=== PATIENT | male | born 1940 | race Caucasian/White ===

== ENCOUNTER 2017-04-07 07:23 | Outpatient (RCR) | payer MEDICARE, OTHER, SELFPAY ==
[2017-04-07 08:51] LABS: AST(SGOT) 45 U/L (15-37); Alanine Aminotransfer ALT/SGPT 46 U/L (12-78); Albumin, Serum 3.1 g/dL (3.4-5.0); Alkaline Phosphatase 113 U/L (45-117); Bilirubin, Direct 0.31 mg/dL (0.00-0.30); Globulin 4.5 g/dL (2.2-4.2); Protein, Total 7.6 g/dL (6.4-8.2)
== END 2017-04-07 07:45 | disposition home or self-care (01) ==
LOC: LAB 07:23
PROVIDERS: Family Provider Student in an Organized Health Care Education/Training Program; PCP Student in an Organized Health Care Education/Training Program
DX: K50.00 Crohn's disease of small intestine without complications (principal); E03.9 Hypothyroidism, unspecified; M25.50 Pain in unspecified joint
CPT/HCPCS: 36415; 80076

== ENCOUNTER 2024-07-19 16:00 | Emergency (ER) | payer MEDICARE, OTHER, SELFPAY ==
[2024-07-19 16:01] VITALS: BP 141/81; PULSE 82; RESP 19; TEMP 36.7; O2SAT 98; BMI 30.2
--- NOTE | 2024-07-19 17:37 | EX.ED.DYSGE1 ---
HPI History of Present Illness Chief Complaint: Complaint Narrative Narrative: Chief complaint and HPI: Urolithiasis with right flank pain. History taken by patient as well as medical record. 83-year-old gentleman presents for evaluation of urolithiasis with right flank pain. Patient is visiting from [place]. States that 4 days ago he started having right flank pain and dark urine with hematuria. Has a history of intermittent hematuria for the past several months. Has not followed up for this. Saw PCP today in which he had UA performed that was negative for UTI but positive for blood. Creatinine of 1.49. Had a CT abdomen pelvis with IV contrast outpatient. Showed right hydronephrosis with a 1.5 x 1 cm stone in the right mid ureter. Urothelial thickening in the left renal pelvis and proximal left ureter which can be seen with left pyelitis/pyelonephritis. Staghorn stone in the left renal pelvis. Mild thickening of the distal ileum versus non-distention. The possibility of an enteritis is raised. Finding consistent with cirrhosis and portal hypertension. He was sent to the emergency department due to the findings. Patient denies any fever, chills, shortness of breath, chest pain, nausea, vomiting, diarrhea, constipation, dysuria. States he received Toradol prior to arrival here in the emergency department and that his pain is controlled. Review of systems: See HPI Medications: As listed on the chart Allergies: As listed on the chart PFSH: Per chart Vital signs: As listed on the chart. Reviewed. Physical exam: Gen: A&O x3, NAD Head: Normocephalic, atraumatic Eyes: No sclera icterus, conjunctiva clear ENT: Moist mucous membranes Neck: Trachea midline, No JVD CV: RRR, no murmurs, no peripheral edema Resp: Lungs CTA BL, no w/r/c GI: Abd soft, non-distended, non-tender, no r/r/g : No CVA tenderness Musc: Full ROM, no deformity Skin: Warm, dry Neuro: Alert, oriented, grossly intact, sensation intact Psych: Cooperative, appropriate mood and affect [facility] Medical History (Updated 07/19/24 @ 17:05 by Lizzeth Mills) Crohn's disease Home Medications ?Medication ?Instructions ?Recorded ?Last Taken ?Type cyanocobalamin (vitamin B-12) 1,000 mcg subcut .COMPLEX 07/19/24 Unknown History 1,000 mcg/mL injection solution levothyroxine 100 mcg tablet 100 mcg PO DAILY 07/19/24 Unknown History tramadol 50 mg tablet 50 mg PO Q6H PRN PRN pain 07/19/24 Unknown History ustekinumab 45 mg/0.5 mL 90 mg subcut .COMPLEX 07/19/24 Unknown History subcutaneous solution (Stelara) Allergy/AdvReac Type Severity Reaction Status Date / Time No Known Allergies Allergy Verified 07/19/24 16:01 Social History Smoking Status: Never smoker EXAM Physical Exam Const Vital Signs: 07/19/24 16:01 07/19/24 18:01 07/19/24 20:00 Temperature 98.1 F Temperature Source Temporal Pulse Rate 82 89 Respiratory Rate 19 H 18 16 Blood Pressure 141/81 H 158/98 H Blood Pressure Mean 101 118 Pulse Ox 98 98 Oxygen Delivery Method Room Air Room Air Room Air 07/19/24 22:00 07/19/24 22:00 Temperature 98.2 F Temperature Source Pulse Rate 71 74 Respiratory Rate 16 16 Blood Pressure 166/83 H 166/83 H Blood Pressure Mean 110 110 Pulse Ox 98 97 Oxygen Delivery Method Room Air MDM MDM MDM Narrative Medical decision making narrative: 83-year-old gentleman presents for evaluation of urolithiasis with right flank pain. Patient had outpatient imaging that showed right hydronephrosis with a 1.5 x 1 cm stone in the mid ureter. Received Toradol prior to arrival and states his pain is controlled. I did review the laboratory and imaging from PCP. Patient is in no acute distress on arrival. His vitals are stable. He is denying any infectious type symptoms. Differential diagnosis includes but is not limited to urolithiasis, obstructive JANELLE, electrolyte abnormality. Suspect less likely pyelonephritis as well as UTI given that UA was negative. The urologist that we have on-call is Dr. Olvera who only manages female patients. Patient will need to be transferred to another facility. States his doctor is with the [facility] so recommended [facility] transfer. Patient and became very upset with this news. There was multiple discussions in the room about further management. They originally were going to leave AGAINST MEDICAL ADVICE but then agreed to NS bolus, laboratory workup, and transfer. After laboratory workup was ordered, patient changed his mind and wanted to leave AGAINST MEDICAL ADVICE again. He then agreed to stay. Patient declining pain medicine. CBC without leukocytosis or anemia. Patient does have thrombocytosis of 138. I do not have a previous CBC to compare to. BMP shows worsening renal insufficiency with a BUN of 22 and a creatinine of 1.68. Lactic acid unremarkable. UA again is positive for blood but negative for UTI. I have low suspicion for pyelonephritis or infectious etiology. Patient was updated of all the results and the plan for transfer. There was a delay in transfer acceptance as [facility] was originally contacted and I spoke with the urologist Dr. Jimenez. [facility] was then contacted which they did not have anything available and recommended [facility] [place]. I spoke with the urologist Dr. Goodman who accepted transfer. She agrees that patient will likely need stent placement. Given that patient's vitals are stable, his pain controlled, and negative for infection she is okay with private vehicle transfer. This was discussed because patient refused to be transferred via ambulance. I do think this is reasonable. Patient's will be monitored in our emergency department on maintenance fluids until that is obtained. Once bed is obtained patient will be transferred via private vehicle to [facility]. He confirmed understanding of the plan. Impression: 1. Right flank pain secondary to right hydronephrosis and urolithiasis 2. JANELLE/renal insufficiency secondary to #1 obstructive, 3. Hematuria secondary to #1 4. Thrombocytopenia Lab Data Labs: Laboratory Results - last 24 hr 07/19/24 07/19/24 19:27 19:55 WBC 7.4 RBC 4.26 L Hgb 13.8 Hct 40.7 MCV 95.5 H MCH 32.4 H MCHC 33.9 RDW Std Deviation 48.0 H RDW Coeff of Alexi 13.6 Plt Count 138 L MPV 9.8 Immature Gran % (Auto) 0.300 Neut % (Auto) 81.6 H Lymph % (Auto) 12.0 L [place] % (Auto) 5.3 Eos % (Auto) 0.3 Baso % (Auto) 0.5 Absolute Neuts (auto) 6.0 Absolute Lymphs (auto) 0.89 Nucleated RBC % 0 Sodium 137 Potassium 4.6 Chloride 103 Carbon Dioxide 23.2 Anion Gap 11 BUN 22 H Creatinine 1.68 H Estim Creat Clear Calc 40.05 L Est GFR (MDRD) Non-Af 41 L BUN/Creatinine Ratio 12.8 Glucose 89 Lactic Acid 1.1 Calcium 8.8 Urine Color Susan Urine Clarity Cloudy Urine pH 7.0 Ur Specific [place] 1.005 Urine Protein 30 H Urine Glucose (UA) Normal Urine Ketones Negative Urine Occult Blood 250 H Urine Nitrite Negative Urine Bilirubin Negative Urine Urobilinogen Normal Ur Leukocyte Esterase Negative Urine RBC > 100 SEEN Urine WBC 0-5 SEEN Ur Squamous Epith Cells 0-5 SEEN Urine Bacteria 0 SEEN Urine Mucus 0 SEEN Discharge Plan Triage Chief Complaint: Complaint ED Provider: Lex Moore Dx/Rx/DC Orders Prescriptions: No Action Stelara 45 mg/0.5 mL solution 90 mg subcut .COMPLEX Rx Instructions: 90 mg subcutaneously every 2 months; cyanocobalamin (vitamin B-12) 1,000 mcg/mL solution 1,000 mcg subcut .COMPLEX Patient Comments: [NO ORIGINAL SIG] Rx Instructions: 1,000 mcg subcutaneously; every 3 weeks tramadol 50 mg tablet 50 mg PO Q6H PRN PRN (Reason: pain) levothyroxine 100 mcg tablet 100 mcg PO DAILY Primary Care Provider: Jean-Claude Clark Referrals: Jean-Claude Clark, DO [Primary Care Provider] - Print Language: [place]uan
[2024-07-19 18:01] VITALS: RESP 18
[2024-07-19] MEDS: 0.9% Normal Saline (1000mL) 1,000 ML 999 ML IV (19:25)
[2024-07-19 19:38] LABS: Absolute Lymphocyte Count 0.89 X10^3/uL (0.83-4.51); Basophil# 0.04 X10^3/uL; Basophil% 0.5 % (0-1); Eosinophil# 0.02 X10^3/uL; Eosinophils% 0.3 % (0-5); Hematocrit 40.7 % (40-54); Hemoglobin 13.8 g/dL (13.0-16.5); Lymphocyte # 0.89 X10^3/ul (0.83-4.51); Mean Corp Hgb Conc 33.9 g/dL (32-36); Mean Corpuscular Hgb 32.4 pg (27.0-32.0); Mean Corpuscular Volume 95.5 fL (80-94); Mean Platelet Vol. 9.8 fl (6.2-12.0); Monocyte# 0.39 X10^3/uL; Monocyte% 5.3 % (0-10); NRBC Flagged by Analyzer 0 % (0-5); Neutrophil # 6.03 X10^3/uL (2.7-7.7); Neutrophil % 81.6 % (47-70); Platelet Count 138 K/mm3 (150-450); RBC Distribution Width CV 13.6 % (11.6-14.6); Red Blood Count 4.26 M/mm3 (4.6-6.2); White Blood Count 7.4 K/mm3 (4.4-11.0)
[2024-07-19 20:00] VITALS: BP 158/98; PULSE 89; RESP 16; O2SAT 98
[2024-07-19 20:02] LABS: Bacteria 0 SEEN /hpf (None Seen); Mucous, Urine 0 SEEN /hpf (<or=2+)
[2024-07-19 20:04] LABS: Color, Urine Amber (Yellow); Glucose, Dipstick Normal (Normal); Ketone-Dipstick Negative (Negative); Leukocyte Esterase-Dipstick Negative /ul (Negative); Nitrite-Dipstick Negative (Negative); Occult Blood-Urine 250 /ul (Negative); Protein-Dipstick 30 mg/dl (Negative); Specific Gravity, Urine 1.005 (1.002-1.030); Urine Bilirubin Dipstick Negative (Negative); Urine Clarity Cloudy (Clear); Urine Urobilinogen Normal (Normal)
[2024-07-19 20:06] LABS: Anion Gap 11 (5-15); BUN 22 mg/dL (4-19); BUN/Creat Ratio 12.8 RATIO (10-20); Calcium,Total 8.8 mg/dL (7.6-11.0); Carbon Dioxide 23.2 mmol/L (21.0-32.0); Chloride 103 mmol/L (98-108); Creatinine, Serum 1.68 mg/dL (0.70-1.20); EST Glomerular Filtration Rate 41 (>60); Estimated Creatinine Clearance 40.05 ml/min (50-250); Glucose 89 mg/dL (70-99); Potassium 4.6 mmol/L (3.3-5.1); Sodium Level 137 mmol/L (133-145)
[2024-07-19 20:07] LABS: Lactic Acid 1.1 mmol/L (0.0-2.0)
[2024-07-19 20:27] LABS: Red Blood Cells-Urine > 100 SEEN /hpf (0-5); White Blood Cells 0-5 SEEN /hpf (0-5)
[2024-07-19 20:29] LABS: Squamous Epithelial Cells - UA 0-5 SEEN /hpf (0-5)
[2024-07-19 22:00] VITALS: BP 166/83; PULSE 71; PULSE 74; RESP 16; TEMP 36.8; O2SAT 97; O2SAT 98
[2024-07-19] MEDS: 0.9% Normal Saline (1000mL) 1,000 ML 100 ML IV (22:00)
--- NOTE | 2024-07-19 22:27 | ED.RN ---
Patient and patient's educated on the patient's transfer to [facility] and educated on leaving by private car. Patient's IV will be saline locked for transfer. Patient educated on the importance of driving straight to the receiving hospital. Transfer form and private car transport form signed at this time. Patient and patient's educated on waiting on patient bed at receiving hospital. All questions answered at this time.
[2024-07-19 23:58] VITALS: BP 158/92; PULSE 69; RESP 16; O2SAT 98
== END 2024-07-20 00:30 | disposition short-term general hospital (02) ==
LOC: ED 17:24
PROVIDERS: Emergency Provider Surgery; PCP Student in an Organized Health Care Education/Training Program; Referring Provider Surgery; Visit Provider Surgery
DX: N13.2 Hydronephrosis with renal and ureteral calculous obstruction (principal); K50.90 Crohn's disease, unspecified, without complications; N17.9 Acute kidney failure, unspecified; R31.9 Hematuria, unspecified; D69.6 Thrombocytopenia, unspecified; Z79.899 Other long term (current) drug therapy
CPT/HCPCS: 80048; 81001; 83605; 85025; 96360; 96361; 99284; A4216